=== PATIENT | male | born 1950 | race Caucasian/White ===

== ENCOUNTER 2022-04-25 09:07 | Day surgery (SDC) | payer MEDICARE, BC ==
[2022-04-20 14:01] LABS: CLARITY,URINE CLEAR (Clear); COLOR,URINE YELLOW (Yellow); GLUCOSE, URINE NEGATIVE (Neg); KETONES,URINE NEGATIVE (Neg); LEUKOCYTE ESTERASE ,URINE NEGATIVE (Neg); NITRITES, URINE NEGATIVE (Neg); OCCULT BLOOD,URINE NEGATIVE (Neg); PROTEIN,URINE NEGATIVE (Neg); UROBILINOGEN,URINE 0.2 E.U/dL (0.2-1.0)
[2022-04-20 14:06] LABS: UA COLLECTION TYPE NON-SPECIFIED
[2022-04-20 14:14] LABS: BASOPHILS # (AUTO) 0.1 X10'3 (0-0.2); EOSINOPHILS # (AUTO) 0.3 X10'3 (0-0.9); EOSINOPHILS % (AUTO) 4.3 % (0-6); LYMPHOCYTES # (AUTO) 1.6 X10'3 (1.1-4.8); MEAN CORPUSCULAR HEMOGLOBIN 32.5 PG (27.0-31.0); MEAN CORPUSCULAR HGB CONC 34.8 g/dL (33.0-36.5); MEAN CORPUSCULAR VOLUME 93.6 FL (78-98); MEAN PLATELET VOLUME 8.7 FL (7.4-10.4); MONOCYTES # (AUTO) 0.8 X10'3 (0-0.9); MONOCYTES % (AUTO) 12.6 % (2-12); NEUTROPHILS # (AUTO) 3.6 X10'3 (1.8-7.7); NEUTROPHILS % (AUTO) 57.1 % (42-75); PRE OP HEMATOCRIT 41.5 % (42.0-52.0); PRE OP HEMOGLOBIN 14.4 g/dL (14.0-17.9); PRE OP PLATELET COUNT 196 X10'3 (140-440); RED BLOOD COUNT 4.44 X10'6 (4.70-6.10); RED CELL DISTRIBUTION WIDTH 13.5 % (11.5-14.5)
[2022-04-20 14:18] LABS: ALBUMIN 4.1 G/DL (3.4-5.0); ALBUMIN/GLOBULIN RATIO 1.2 (1.1-1.5); ALKALINE PHOSPHATASE 54 IU/L (46-116); BLOOD UREA NITROGEN 20 MG/DL (7-18); BUN/CREATININE RATIO 17.1 (5.4-32.0); CALCIUM 9.2 MG/DL (8.5-10.1); CHLORIDE 106 MMOL/L (99-107); CREATININE 1.17 MG/DL (0.60-1.10); PRE OP ALT 32 U/L (30-65); PRE OP ANION GAP 7 (8-16); PRE OP AST 25 U/L (10-37); PRE OP BILIRUB, TOTAL 0.2 MG/DL (0.0-1.0); PRE OP GLUCOSE 109 MG/DL (70-104); PRE OP POTASSIUM 4.1 MMOL/L (3.4-5.1); PRE OP SODIUM 141 MMOL/L (135-145); TOTAL CARBON DIOXIDE 28.3 MMOL/L (24-32); TOTAL PROTEIN 7.4 G/DL (6.4-8.2); eGFR 61 ML/MIN
[2022-04-25] VITALS (24 sets, daily range): BP systolic 114–142; BP diastolic 60–80
[~2022-04-25] VITALS: Ht 170.2 cm; Wt 78.8 kg
[~2022-04-25 09:07] MED LIST: BUPIVAcaine/PF 2.5 mg/ml (0.25%) 30ml vial ONE; LEVO150T8 PO; LOVA10TA PO; OLME1TAB48 PO; ceFAZolin inj. 2,000 MG in dextrose 5%-water 100 ML IV ONE; famotidine 20mg tablet PO ONE; ringers solution, lacted 1,000 ML IV SCH
[2022-04-25] MEDS ORDERED: sevoflurane 250ml liquid IH ONE (13:16)
[2022-04-25] MEDS ORDERED: fentaNYL/PF 50MCG/1 ML 2ML syringe ONE ×2 (13:21→14:17)
[2022-04-25] MEDS ORDERED: ondansetron/PF 4mg/2ml inj ONE (15:00)
[2022-04-25] MEDS ORDERED: propofol inj 20 ML IV ONE (15:00)
[2022-04-25] MEDS ORDERED: dexamethasone sod phosphate 4mg/ml inj. ONE (15:00)
[2022-04-25] MEDS ORDERED: neostigmine methylsulfate 1 MG/ML 10ml vial ONE (15:00)
[2022-04-25] MEDS ORDERED: LIDOcaine 2% (20mg/ml) 5ml vial ONE (15:00)
[2022-04-25] MEDS ORDERED: glycopyrrolate 0.2mg/ml inj ONE (15:00)
[2022-04-25] MEDS ORDERED: acetaminophen 1,000mg/100ml IV 100 ML IV ONE (15:00)
[2022-04-25] MEDS ORDERED: rocuronium 10mg/ml inj IV ONE (15:00)
[2022-04-25] MEDS ORDERED: ePHEDrine 50MG/ML INJ. ONE (15:04)
--- NOTE | 2022-04-25 15:31 | NUR ---
Received from OR via [facility], accompanied by Anesthesiologist DR HIGGINS and report given by Anesthesiolgist. PT PRESENTS WITH PIV 20G RIGHT HAND, ABD DRESSING/SKIN GLUE CDI, VSS. Addendum: 04/25/22 at 1538 by Julieth Arce RN, RN Amended: Links added.
[2022-04-25] MEDS ORDERED: morphine 2 MG/ML inj. syringe IV PRN (15:35)
[2022-04-25] MEDS ORDERED: ondansetron/PF 4mg/2ml inj IV PRN (15:35)
[2022-04-25] MEDS ORDERED: HYDROmorphone/PF 0.2 MG/ML SYRINGE IV PRN ×2 (15:35)
[2022-04-25] MEDS ORDERED: ringers solution, lacted 1,000 ML IV SCH (15:35)
--- NOTE | 2022-04-25 18:00 | NUR ---
PT UP OUT OF BED AND AMBULATED TO THE BATHROOM. PT IS UNABLE TO URINATE. BLADDER SCAN SHOWS 37MLS. WATER PROVIDED FOR PT.
--- NOTE | 2022-04-25 18:41 | NUR ---
PT HAS BEEN DRINKING MULTIPLE CUPS OF WATER AND IS NOT FEELING THE URGE TO URINATE. BLADDER SCAN SHOWS 60MLS IN BLADDER.
--- NOTE | 2022-04-25 19:15 | NUR ---
PT RADHA SCANNED WITH 311 IN BLADDER. PT IS UNABLE TO VOID. VALDEZ CATHETER PLACED 16 AFGHAN WITH STAT LOCK AND URINE METER. PT ADVISED TO FOLLOW UP GUADALUPE REYEZ IN 2 DAYS FOR VALDEZ CATHETER REMOVAL. Addendum: 04/25/22 at 2008 by Julieth Arce RN, RN Amended: Links added.
--- NOTE | 2022-04-25 19:54 | NUR ---
ALL DISCHARGE CRITERIA HAS BEEN MET. VSS, PAIN AT A TOLERABLE LEVEL, SAFELY AMBULATE AND TRANSFER SELF. IV TAKEN OUT WITHOUT ANY COMPLICATIONS. PT SENT HOME WITH 16FRENCH VALDEZ CATH WITH STAT LOCK AND URINE METER. PT GIVEN INSTRUCTIONS TO CALL DR REYEZ IN 2 DAYS FOR VALDEZ REMOVAL, PT ALSO GIVEN VALDEZ DC INSTRUCTIONS AND VALDEZ WIPES. ALL DISCHARGE INSTRUCTIONS COVERED WITH PATIENT AND ALL QUESTIONS ANSWERED. PATIENT TAKEN OUT VIA WHEELCHAIR TO PERSONAL VEHICLE WHERE FAMILY/FRIEND DROVE PATIENT HOME. Addendum: 04/25/22 at 2017 by Julieth Arce RN, RN Amended: Links added.
== END 2022-04-25 19:54 | disposition home or self-care (01) ==
LOC: PAS 09:07 → EDBD 12:00 → PAS 19:54
PROVIDERS: ATTEND Surgery
DX: K40.90 Unilateral inguinal hernia, without obstruction or gangrene, not specified as recurrent (principal); Z79.899 Other long term (current) drug therapy; Z98.890 Other specified postprocedural states; Z87.891 Personal history of nicotine dependence; Z96.652 Presence of left artificial knee joint
CPT/HCPCS: 36415; 49650; 80053; 81003; 82948; 85025; 87811; 93005; C1758; C1781; J0131; J0690; J1100; J2405; J2704; J2710; J3010; J3490; J7030; J7060; J7120; Z7506; Z7508; Z7512; A4215; A4314; A4615; A4618